=== PATIENT | female | born 1985 | race Native Hawaiian/Other Pacific Islander ===

== ENCOUNTER → 2017-02-17 | Outpatient (CLI) | payer OTHER ==
--- NOTE | 2017-02-17 10:26 | USB ---
Reason for exam: clinical finding. History: Patient is nulliparous. Indicated problem(s): palpable abnormality in the right breast. Physical Findings: Nurse Summary: lump found by physician (nurse avila). US Breast RT Right breast ultrasound includes all four quadrants, the retroareolar region and axilla. Finding demonstrates no cystic or solid lesion seen. These results were verbally communicated with the patient and result sheet given to the patient on 02/17/17. ASSESSMENT: Negative, BI-RAD 1 RECOMMENDATION: Routine screening mammogram of both breasts at age 42. Manage patient on a clinical basis.
== END | disposition home or self-care (01) ==
LOC: RADUSWWP 09:15
PROVIDERS: ATTEND Radiology Diagnostic Radiology
DX: N63 Unspecified lump in breast (principal)

== ENCOUNTER → 2017-02-17 | Outpatient (CLI) | payer OTHER ==
--- NOTE | 2017-02-17 09:56 | US ---
EXAMINATION TYPE: US thyroid st tissue head/neck DATE OF EXAM: 02/17/2017 COMPARISON: NONE CLINICAL HISTORY: ,E04.1 Thyroid nodule. Left palpable GLAND SIZE: Right Lobe: 5.4 x 1.3 x 1.7 cm Overall Parenchyma: heterogenous Left Lobe: 4.8 x 1.6 x 2.0 cm Overall Parenchyma: heterogeneous Isthmus Thickness: 0.4 cm NODULES RIGHT: # of nodules measured on right: 0 LEFT: # of nodules measured on left: 1 1. 0.6 X 0.4 x 0.7 cm echogenic solid nodule at the lower pole with well-defined margins; . This n odule is wider than tall and shows intranodular vascularity. Prior size: no prior ISTHMUS: # of nodules measured in the isthmus: 0 Bilateral neck scanned, no evidence of lymphadenopathy. IMPRESSION: 1. Single less than 1 cm left thyroid nodule noted. 2. Thyroid appears to be enlarged and heterogeneous correlate for thyroiditis.
== END | disposition home or self-care (01) ==
LOC: RADMAMWWP 08:57
PROVIDERS: ATTEND Family Medicine
DX: E04.1 Nontoxic single thyroid nodule (principal)
CPT/HCPCS: 76536

== ENCOUNTER → 2017-03-16 | Outpatient (CLI) | payer OTHER ==
--- NOTE | 2017-03-16 20:35 | XR ---
EXAMINATION TYPE: XR cervical spine comp DATE OF EXAM: 03/16/2017 COMPARISON: NONE HISTORY: 31-year-old female disturbance of skin sensation, neck pain TECHNIQUE: 6 views FINDINGS: No predental space widening or prevertebral soft tissue swelling. There is reversal of the normal cer vical lordosis but with preserved alignment. Normal odontoid view. No significant bony spondylotic ne ural foraminal narrowing on either side. IMPRESSION: 1. Straightening of the normal cervical lordosis could be positional or due to muscle spasm. 2. No malalignment or appreciable bony neuroforaminal narrowing on either side.
== END | disposition home or self-care (01) ==
LOC: RADXRMAIN 17:00
PROVIDERS: ATTEND Nurse Practitioner Women's Health
DX: M40.202 Unspecified kyphosis, cervical region (principal); M54.2 Cervicalgia; R20.9 Unspecified disturbances of skin sensation
CPT/HCPCS: 72050

== ENCOUNTER → 2017-04-13 | Outpatient (CLI) | payer OTHER | END | disposition home or self-care (01) | LOC: LABWHC1 14:54 | PROVIDERS: ATTEND Nurse Practitioner Women's Health | DX: E04.1 Nontoxic single thyroid nodule (principal); E03.9 Hypothyroidism, unspecified | CPT/HCPCS: 36415; 84439; 84443; 86376 ==

== ENCOUNTER → 2017-12-13 | Outpatient (CLI) | payer OTHER ==
--- NOTE | 2017-12-13 19:05 | ECHOF ---
Referral Reason:Z82.49 Family history of ischemic heart disease MEASUREMENTS -------- HEIGHT: 171.4 cm WEIGHT: 131.5 kg BP: 138/65 RVIDd: 2.7 cm (< 3.3) IVSd: 0.9 cm (0.6 - 1.1) LVIDd: 5.1 cm (3.9 - 5.3) LVPWd: 0.8 cm (0.6 - 1.1) IVSs: 1.3 cm LVIDs: 3.4 cm LVPWs: 1.1 cm LA Diam: 3.5 cm (2.7 - 3.8) LAESV Index (A-L): 20.96 ml/m Ao Diam: 2.9 cm (2.0 - 3.7) AV Cusp: 2.1 cm (1.5 - 2.6) MV EXCURSION: 16.594 mm (> 18.000) MV EF SLOPE: 111 mm/s (70 - 150) EPSS: 0.2 cm MV E Ajit: 0.93 m/s MV DecT: 152 ms MV A Ajit: 0.62 m/s MV E/A Ratio: 1.50 FINDINGS -------- Sinus rhythm. This was a technically difficult study with suboptimal apical views. The left ventricular size is normal. Left ventricular wall thickness is normal. Overall left vent ricular systolic function is normal with, an EF between 60 - 65 %. The right ventricle is normal in size and function. Normal LA size by volume 22+/-6 ml/m2. The right atrium is normal in size. 4 ml of Lumason was utilized for enhancement of images. The aortic valve was not well visualized. The mitral valve is normal. The tricuspid valve appears structurally normal. The pulmonic valve was not well visualized. The aortic root size is normal. Normal inferior vena cava with normal inspiratory collapse consistent with estimated right atrial pre ssure of 5 mmHg. There is no pericardial effusion. CONCLUSIONS -------- 1. Sinus rhythm. 2. This was a technically difficult study with suboptimal apical views. 3. The left ventricular size is normal. 4. Left ventricular wall thickness is normal. 5. Overall left ventricular systolic function is normal with, an EF between 60 - 65 %. 6. The right ventricle is normal in size and function. 7. Normal LA size by volume 22+/-6 ml/m2. 8. The right atrium is normal in size. 9. 4 ml of Lumason was utilized for enhancement of images. 10. The aortic valve was not well visualized. 11. The mitral valve is normal. 12. The tricuspid valve appears structurally normal. 13. The pulmonic valve was not well visualized. 14. The aortic root size is normal. 15. Normal inferior vena cava with normal inspiratory collapse consistent with estimated right atrial pressure of 5 mmHg. 16. There is no pericardial effusion. LITHOGRAPHER HELPER: Alena Cheng RDCS
== END | disposition home or self-care (01) ==
LOC: RADECHMAIN 13:02
PROVIDERS: ATTEND Family Medicine
DX: Z13.6 Encounter for screening for cardiovascular disorders (principal); Z82.49 Family history of ischemic heart disease and other diseases of the circulatory system
CPT/HCPCS: C8929; Q9950; 93306

== ENCOUNTER 2019-04-08 17:32 | Emergency (ER) | payer OTHER ==
[2019-04-08 17:37] VITALS: BP 123/86; PULSE 86; RESP 16; TEMP 98.6
[2019-04-08] MEDS ORDERED: CIPROFLOXACIN-DEXAMETH 0.3-0.1% DROPS 7.5 ML BTL LEFT EAR STA (18:24)
[2019-04-08] MEDS ORDERED: NEOMYCIN-POLYMYXIN-HC OPHTH DROPS 7.5 ML BTL LEFT EYE STA (18:41)
--- NOTE | 2019-04-08 19:29 | ED ---
ENT HPI - General Chief complaint: ENT Stated complaint: ear pain Time Seen by Provider: 04/08/19 17:45 Source: patient Mode of arrival: ambulatory Limitations: no limitations - History of Present Illness Initial comments: Patient is a 33-year-old male presenting to emergency Department with a chief complaint of ear pain. Patient reports the pain started approximately 2 days ago and is increased in severity over since. Patient reports ear drainage and pain when testing on the ear. Patient reports using drops that were given to her by her friend. Patient reports currently she has decreased sounds sensation in the right ear. Patient denies any fever or headache.. Patient denies recent exposure to pool water. - Related Data Home Medications Medication Instructions Recorded Confirmed ALPRAZolam [Xanax] 0.5 mg PO BID PRN 04/10/16 04/10/16 Phentermine HCl [Adipex-P] 18.75 mg PO QAM 04/10/16 04/10/16 Previous Rx's Medication Instructions Recorded Ibuprofen [Motrin] 600 mg PO Q8HR PRN #30 tab 11/28/14 SILVER sulfADIAZINE CREAM 1 applic TOPICAL BID PRN #1 tube 04/10/16 [Silvadene Cream] Sulfamethox-Tmp 800-160Mg [Bactrim 1 tab PO Q12HR 7 Days tab 04/10/16 DS 800-160 mg] valACYclovir HCL [Valtrex] 1,000 mg PO Q12HR 10 Days tab 04/10/16 Amoxicillin 500 mg PO Q8H #21 capsule 04/08/19 Allergies Allergy/AdvReac Type Severity Reaction Status Date / Time bee pollen Allergy Unknown Verified 04/08/19 17:37 Review of Systems ROS Statement: Those systems with pertinent positive or pertinent negative responses have been documented in the HPI. ROS Other: All systems not noted in ROS Statement are negative. Past Medical History Past Medical History: No Reported History History of Any Multi-Drug Resistant Organisms: None Reported Past Surgical History: No Surgical Hx Reported Past Psychological History: No Psychological Hx Reported Smoking Status: Current every day smoker Past Alcohol Use History: Rare Past Drug Use History: None Reported General Exam Limitations: no limitations General appearance: alert, in no apparent distress Head exam: Present: atraumatic, normocephalic, normal inspection Eye exam: Present: normal appearance, PERRL, EOMI Pupils: Present: normal accommodation ENT exam: Present: normal exam, normal oropharynx, mucous membranes moist. Absent: TM's normal bilaterally (Mild erythema at the right tympanic membrane), normal external ear exam (Erythema and white discharge from the external ear canal) Neck exam: Present: normal inspection, full ROM Respiratory exam: Present: normal lung sounds bilaterally Cardiovascular Exam: Present: regular rate, normal rhythm GI/Abdominal exam: Present: soft Extremities exam: Present: normal inspection, full ROM, normal capillary refill Back exam: Present: normal inspection, full ROM Neurological exam: Present: alert, oriented X3 Psychiatric exam: Present: normal affect, normal mood Skin exam: Present: warm, intact, normal color Course Vital Signs 04/08/19 17:34 Temperature 98.6 F Pulse Rate 86 Respiratory 16 Rate Blood Pressure 123/86 O2 Sat by Pulse 100 Oximetry Medical Decision Making - Medical Decision Making Patient is a 33-year-old male presenting to the emergency department with a chief complaint of right ear pain. Right ear irrigation was performed to remove any foreign bodies that were placed in the right ear by the patient. Patient tolerated the procedure well. Patient was given antibiotic eardrops advised to continue using for 5-7 days. Patient advised to follow-up with primary care. Strict return parameters were thoroughly discussed the patient was understanding and agreeable. Case discussed with physician. Disposition Clinical Impression: Otitis externa Disposition: HOME SELF-CARE Condition: Stable Instructions (If sedation given, give patient instructions): Earache (ED) Additional Instructions: Please take prescribed medication as directed. Please follow with primary care. Please return to emergency department if symptoms worsen. Prescriptions: Amoxicillin 500 mg PO Q8H #21 capsule Is patient prescribed a controlled substance at d/c from ED?: No Referrals: Wood Gottlieb MD [Primary Care Provider] - 1-2 days Time of Disposition: 19:29
== END 2019-04-08 19:42 | disposition home or self-care (01) ==
LOC: EC 17:32
DX: H60.91 Unspecified otitis externa, right ear (principal); F17.200 Nicotine dependence, unspecified, uncomplicated; Z79.899 Other long term (current) drug therapy; Z91.048 Other nonmedicinal substance allergy status
CPT/HCPCS: 99282

== ENCOUNTER → 2019-10-10 | Outpatient (CLI) | payer OTHER ==
--- NOTE | 2019-10-10 10:46 | XR ---
EXAMINATION TYPE: XR KUB DATE OF EXAM: 10/10/2019 COMPARISON: NONE HISTORY: Pain TECHNIQUE: Single supine KUB image of the abdomen is obtained FINDINGS: Small bowel demonstrates no evidence for dilatation or air fluid levels. Gas and fecal material is seen in non-distended colon. No convincing evidence for pneumoperitoneum. No unusual calcifications. The lung bases are clear. The osseous structures are intact. IMPRESSION: 1. Overall nonobstructive bowel gas pattern.
== END | disposition home or self-care (01) ==
LOC: RADXRMAIN 10:08
PROVIDERS: ATTEND Family Medicine
DX: R10.9 Unspecified abdominal pain (principal); R31.0 Gross hematuria
CPT/HCPCS: 74018

== ENCOUNTER → 2020-05-29 | Outpatient (CLI) | payer OTHER ==
--- NOTE | 2020-05-30 12:32 | US ---
EXAMINATION TYPE: US transvaginal DATE OF EXAM: 05/29/2020 COMPARISON: NONE CLINICAL HISTORY: N94.10 Dyspareunia, N93.9 Abnormal vaginal bleeding. Pain and bleeding TECHNIQUE: Transvaginal (TV). EXAM MEASUREMENTS: Uterus: 8.1 x 4.0 x 5.0 cm Endometrial Stripe: 1.1 cm 1. Uterus: Anteverted Nabothian cysts seen largest 1.4 cm. 2. Endometrium: wnl 3. Right Ovary: Obscured by overlying bowel gas 4. Left Ovary: Obscured by overlying bowel gas 5. Bilateral Adnexa: wnl 6. Posterior cul-de-sac: wnl IMPRESSION: 1. Visualized portion of the pelvis is unremarkable. Ovaries are not identified during this exam
== END | disposition home or self-care (01) ==
LOC: RADUSWWP 16:28
PROVIDERS: ATTEND Family Medicine
DX: N94.10 Unspecified dyspareunia (principal); N93.9 Abnormal uterine and vaginal bleeding, unspecified
CPT/HCPCS: 76830

== ENCOUNTER 2023-07-30 11:35 | Emergency (ER) | payer OTHER ==
--- NOTE | 2023-07-30 11:55 | XR ---
EXAMINATION TYPE: XR chest 2V DATE OF EXAM: 07/30/2023 COMPARISON: NONE HISTORY: Chest pain TECHNIQUE: Frontal and lateral views of the chest are obtained. FINDINGS: There is no focal air space opacity. No evidence for pneumothorax. No pleural effusion. The cardiac silhouette size is within normal limits. The osseous structures are grossly intact. IMPRESSION: 1. No acute cardiopulmonary process.
--- NOTE | 2023-07-30 12:11 | ED ---
URI HPI - General Chief Complaint: Upper Respiratory Infection Stated Complaint: KADEN,ear pain Time Seen by Provider: 07/30/23 12:10 Source: patient Mode of arrival: ambulatory Limitations: no limitations - History of Present Illness Initial Comments: patient is a 38-year-old female presented ER with chief complaint of URI. Patient states the symptoms were gone on for the past 3 days. Patient states congestion, cough, sore throat, bilateral ear pain. She denies any chest pain or shortness of breath. Patient denies any current fevers, chills or nig htsweats. - Related Data Home Medications Medication Instructions Recorded Confirmed ALPRAZolam [Xanax] 0.5 mg PO BID PRN 04/10/16 04/10/16 Phentermine HCl [Adipex-P] 18.75 mg PO QAM 04/10/16 04/10/16 Previous Rx's Medication Instructions Recorded Ibuprofen [Motrin] 600 mg PO Q8HR PRN #30 tab 11/28/14 SILVER sulfADIAZINE CREAM 1 applic TOPICAL BID PRN #1 tube 04/10/16 [Silvadene Cream] Sulfamethox-Tmp 800-160Mg [Bactrim 1 tab PO Q12HR 7 Days tab 04/10/16 DS 800-160 mg] valACYclovir HCL [Valtrex] 1,000 mg PO Q12HR 10 Days tab 04/10/16 Amoxicillin 500 mg PO Q8H #21 capsule 04/08/19 Albuterol Inhaler [Ventolin Hfa 1 - 2 puff INHALATION Q6H PRN #1 07/30/23 Inhaler] each Allergies Allergy/AdvReac Type Severity Reaction Status Date / Time bee pollen Allergy Unknown Verified 07/30/23 11:39 Review of Systems ROS Statement: Those systems with pertinent positive or pertinent negative responses have been documented in the HPI. ROS Other: All systems not noted in ROS Statement are negative. Past Medical History Past Medical History: No Reported History History of Any Multi-Drug Resistant Organisms: None Reported Past Surgical History: No Surgical Hx Reported Past Psychological History: No Psychological Hx Reported Smoking Status: Current every day smoker Past Alcohol Use History: Rare Past Drug Use History: None Reported General Exam - General Exam Comments Initial Comments: Visual Physical Exam Vital signs reviewed General: Well-appearing, nontoxic, no acute distress. Head: Normocephalic, atraumatic Eyes: PERRLA, EOMI ENT: Airway patent Chest: Nonlabored breathing Skin: No visual rash, normal skin tone Neuro: Alert and oriented 3 Musculoskeletal: No gross abnormalities Limitations: no limitations General appearance: alert, in no apparent distress ENT exam: Present: normal exam, mucous membranes moist Neck exam: Present: normal inspection. Absent: tenderness, meningismus, lymphadenopathy Respiratory exam: Present: normal lung sounds bilaterally. Absent: respiratory distress, wheezes, rales, rhonchi, stridor Cardiovascular Exam: Present: regular rate, normal rhythm, normal heart sounds. Absent: systolic murmur, diastolic murmur, rubs, gallop, clicks Neurological exam: Present: alert, oriented X3, CN II-XII intact Psychiatric exam: Present: normal affect, normal mood Course Vital Signs 07/30/23 11:36 Temperature 98.7 F Pulse Rate 86 Respiratory 22 Rate Blood Pressure 113/76 O2 Sat by Pulse 99 Oximetry Medical Decision Making - Medical Decision Making Was pt. sent in by a medical professional or institution (, PA, CERTIFIED [place], urgent care, hospital, or custodial...) When possible be specific @ -No Did you speak to anyone other than the patient for history (EMS, parent, family, police, friend...)? What history was obtained from this source @ -No Did you review nursing and triage notes (agree or disagree)? Why? @ -I reviewed and agree with nursing and triage notes Were old charts reviewed (outside hosp., previous admission, EMS record, old EKG, old radiological studies, urgent care reports/EKG's, custodial records)? Report findings @ -No old charts were reviewed Differential Diagnosis (chest pain, altered mental status, abdominal pain women, abdominal pain men, vaginal bleeding, weakness, fever, dyspnea, syncope, headache, dizziness, GI bleed, back pain, seizure, CVA, palpatations, mental health, musculoskeletal)? @ -COVID-19, RSV, influenza, viral sinusitis EKG interpreted by me (3pts min.). @ -None X-rays interpreted by me (1pt min.). @ -Chest x-ray shows no acute cardiopulmonary process. CT interpreted by me (1pt min.). @ -None done U/S interpreted by me (1pt. min.). @ -None done What testing was considered but not performed or refused? (CT, X-rays, U/S, labs)? Why? @ -None What meds were considered but not given or refused? Why? @ -None Did you discuss the management of the patient with other professionals (professionals i.e. , PA, CERTIFIED [place], lab, RT, psych nurse, web content & social media manager, cellular phone repairer, teacher, protocol officer, lead case manager)? Give summary @ -No Was smoking cessation discussed for >3mins.? @ -No Was critical care preformed (if so, how long)? @ -No Were there social determinants of health that impacted care today? How? (Homelessness, low income, unemployed, alcoholism, drug addiction, transportat ion, low edu. Level, literacy, decrease access to med. care, senior care, rehab)? @ -No Was there de-escalation of care discussed even if they declined (Discuss DNR or withdrawal of care, Hospice)? DNR status @ -No What co-morbidities impacted this encounter? (DM, HTN, Smoking, COPD, CAD, Cancer, CVA, ARF, Chemo, Hep., AIDS, mental health diagnosis, sleep apnea, morbid obesity)? @ -None Was patient admitted / discharged? Hospital course, mention meds given and route, prescriptions, significant lab abnormalities, going to OR and other pertinent info. @ -Discharge. Upon examination, patient's vitals remained stable. Viral swabs in the ER were significant for positive RSV. Patient will be discharged with a prescription for albuterol inhaler. I advised patient to use [id number] Tylenol or Motrin for fever control. Return parameters were discussed. Patient was discharged in stable condition with follow-up to PCP. Patient expressed understanding and agreement with care plan. Undiagnosed new problem with uncertain prognosis? @ -No Drug Therapy requiring intensive monitoring for toxicity (Heparin, Nitro, Insulin, Cardizem)? @ -No Were any procedures done? @ -No Diagnosis/symptom? @ -Respiratory syncytial virus Acute, or Chronic, or Acute on Chronic? @ -Acute Uncomplicated (without systemic symptoms) or Complicated (systemic symptoms)? @ -Uncomplicated Side effects of treatment? @ -No Exacerbation, Progression, or Severe Exacerbation? @ -No Poses a threat to life or bodily function? How? (Chest pain, [place], GA, pneumonia, PE, COPD, DKA, ARF, appy, cholecystitis, CVA, Diverticulitis, Homicidal, Suicidal, threat to staff... and all critical care pts) @ -No - Lab Data Lab Results 07/30/23 Range/Units 11:42 Influenza Type A (PCR) Not Detected (Not Detectd) Influenza Type B (PCR) Not Detected (Not Detectd) RSV (PCR) Detected A (Not Detectd) SARS-CoV-2 (PCR) Not Detected (Not Detectd) - Radiology Data Radiology results: report reviewed, image reviewed Disposition Clinical Impression: RSV (respiratory syncytial virus infection) Disposition: HOME SELF-CARE Condition: Stable Additional Instructions: Please return to the Emergency Department if symptoms worsen or any other concerns. Please use [id number] Tylenol or Motrin for fever control. Prescriptions: Albuterol Inhaler [Ventolin Hfa Inhaler] 1 - 2 puff INHALATION Q6H PRN #1 each PRN Reason: Shortness Of Breath Is patient prescribed a controlled substance at d/c from ED?: No Referrals: Karyn Dimas [Primary Care Provider] - 1-2 days Time of Disposition: 13:48
[2023-07-30 14:58] VITALS: BP 143/77; PULSE 98; RESP 20; TEMP 98.2
== END 2023-07-30 14:37 | disposition home or self-care (01) ==
LOC: EC 11:35
DX: B97.4 Respiratory syncytial virus as the cause of diseases classified elsewhere (principal); F17.200 Nicotine dependence, unspecified, uncomplicated; Z20.822 Contact with and (suspected) exposure to COVID-19; Z91.030 Bee allergy status
CPT/HCPCS: 71046; 87636; 99285

== ENCOUNTER 2024-09-06 07:18 | Observation (INO) | payer OTHER ==
[2024-09-06] MEDS: IV FLUID CONTINUATION 1,000 ML IV ONE ×2 (07:39→08:40)
[2024-09-06] MEDS: LACTATED RINGERS 1,000 ML IV SCH (07:54)
[2024-09-06 07:57] LABS: Glucose,Whole Blood 403 mg/dL (70-110)
[2024-09-06] MEDS: INSULIN ASPART (NovoLOG) 100 UNIT/ML VIAL SQ STA (08:01)
[2024-09-06 08:38] LABS: Glucose,Whole Blood 394 mg/dL (70-110)
[2024-09-06] MEDS ORDERED: ONDANSETRON 4 MG/2 ML VIAL IVP PRN (08:41)
--- NOTE | 2024-09-06 08:47 | P.GSHP ---
History of Present Illness H&P Date: 09/06/24 This is a 39 year old female who was scheduled to have an EGD and Colonoscopy today with me. In the preoperative area, she was noted to have a blood sugar of 400. She states she is not feeling well. After discussion with anesthesia, decision was made to cancel her procedure and admit her to hospital for hyperglycemia. VSS General-NAD CVS-RRR Lungs-NLB Abdomen-soft, NTND 39 year old with Hyperglycemia. -Patient admitted for management of Hyperglycemia. Patients PCP Dr Zelaya consulted for medical management -SSI -CLD, NPO/midnight -IV fluids -Nausea Control -Patient did do her bowel prep and I explained to her if her blood sugar improves and she feels better, I will do her EGD and Colonoscopy prior to discharge Alahji Saravia DO [facility] [phone] Past Medical History Past Medical History: Diabetes Mellitus, GERD/Reflux, Hyperlipidemia, Thyroid Disorder Additional Past Medical History / Comment(s): RSV RASHES PERINEAL AREA History of Any Multi-Drug Resistant Organisms: None Reported Past Surgical History: No Surgical Hx Reported Additional Past Surgical History / Comment(s): WISDOM. Past Anesthesia/Blood Transfusion Reactions: No Reported Reaction Smoking Status: Current every day smoker Medications and Allergies Home Medications Medication Instructions Recorded Confirmed Type Ibuprofen [Motrin] 600 mg PO Q8HR PRN #30 tab 11/28/14 09/06/24 Rx EPINEPHrine (Auto Inject) [Epipen] 1 dose IM DIRECTED PRN 08/31/24 09/06/24 History Levothyroxine Sodium 125 mg PO QAM 08/31/24 09/06/24 History metFORMIN HCL 500 mg PO QAM 08/31/24 09/06/24 History valACYclovir HCL [Valtrex] 1,000 mg PO Q12HR PRN 08/31/24 09/06/24 History Allergies Allergy/AdvReac Type Severity Reaction Status Date / Time bee pollen Allergy Unknown Verified 09/06/24 07:52 Surgical - Exam Vital Signs Temp Pulse Resp BP Pulse Ox 97.4 F L 108 H 20 125/78 97 09/06/24 07:47 09/06/24 07:47 09/06/24 07:47 09/06/24 07:47 09/06/24 07:47 Results - Labs Abnormal Lab Results - Last 24 Hours (Table) 09/06/24 09/06/24 Range/Units 07:55 08:36 POC Glucose (mg/dL) 403 H 394 H (70-110) mg/dL
[2024-09-06] MEDS: SODIUM CHLORIDE 0.9% 1,000 ML IV SCH (08:51)
[2024-09-06 09:54] LABS: Appearance,Urine Clear (Clear); Bilirubin,Urine Negative (Negative); Blood,Urine Trace (Negative); Color,Urine Light Yellow; Glucose,Urine (UA) 4+ (Negative); Ketones,Urine 1+ (Negative); Leukocyte Esterase,Urine Negative (Negative); Mucus,Urine Rare /hpf; Nitrite,Urine Negative (Negative); Protein,Urine Negative (Negative); RBC,Urine <1 /hpf (0-5); Specific Gravity,Urine 1.026 (1.001-1.035); Squamous Epithelial Cell,Urine 2 /hpf (0-4); Urobilinogen,Urine <2.0 mg/dL (<2.0); WBC,Urine 1 /hpf (0-5)
[2024-09-06] MEDS: NICOTINE 14MG/24HR PATCH TRANSDERM SCH (10:32)
[2024-09-06] MEDS ORDERED: IBUPROFEN 600 MG TAB PO PRN (10:51)
[2024-09-06 12:09] LABS: Glucose,Whole Blood 317 mg/dL (70-110)
[2024-09-06] MEDS: INSULIN ASPART (NovoLOG) 100 UNIT/ML VIAL SQ SCH (12:20)
[2024-09-06 17:00] LABS: Glucose,Whole Blood 257 mg/dL (70-110)
[2024-09-06] MEDS: PEG 3350 (236 GM/BTL) + LYTES 4,000 ML BOTTLE PO ONE (17:59)
--- NOTE | 2024-09-06 18:23 | HP ---
HISTORY AND PHYSICAL CHIEF COMPLAINT: Elevated blood sugar. HISTORY OF PRESENT ILLNESS: This 39-year-old white female was admitted for colonoscopy, but the case was canceled when she was found to have a blood sugar of 400. She has been feeling fine. She is a diabetic. REVIEW OF SYSTEMS: She has had no nausea, vomiting, etc. Past medical history, family history, personal and social histories reveal that she is not allergic to any medication. She is on: 1. Protonix. 2. Lexapro. 3. Atorvastatin. 4. Ibuprofen. 5. Levothyroxine. 6. Metformin. 7. Valacyclovir. Remainder of her history is unremarkable. She does smoke. She drinks alcohol occasionally. PHYSICAL EXAMINATION: VITAL SIGNS: Blood pressure 120/80 with a pulse of 101, respirations 16. She is afebrile. GENERAL: She appeared to be slightly overweight and in no acute distress. SKIN: Color is normal. Skin is warm and dry. HEAD, EARS, EYES, NOSE, MOUTH and THROAT: Normal. NECK: Veins are not distended. Thyroid is not enlarged. CHEST: Clear. CARDIAC: Normal. ABDOMEN: Soft and nontender. IMPRESSION: Uncontrolled type 2 diabetes. PLAN: 1. Bedrest. 2. IV fluids. 3. Basal bolus insulin program. MMODL / IJN: [id number] /
[2024-09-06 20:07] LABS: Glucose,Whole Blood 303 mg/dL (70-110)
[2024-09-07 03:30] LABS: Basophils % (A) 1 %; Eosinophils # (A) 0.5 k/uL (0-0.7); Eosinophils % (A) 6 %; HCT 38.5 % (34.0-46.0); HGB 12.2 gm/dL (11.4-16.0); Lymphocytes % (A) 38 %; MCHC 31.8 g/dL (31.0-37.0); MCV 81.9 fL (80.0-100.0); Mean Platelet Volume 8.1; Monocytes # (A) 0.3 k/uL (0-1.0); Monocytes % (A) 4 %; Neutrophils # (A) 3.9 k/uL (1.3-7.7); Neutrophils % (A) 49 %; Platelet Count 320 k/uL (150-450); RDW 15.2 % (11.5-15.5); WBC 7.9 k/uL (3.8-10.6)
[2024-09-07 03:34] LABS: African American GFR (CKD) >90 (>60 ml/min/1.73 sqM); Anion Gap 7 mmol/L; Blood Urea Nitrogen 7 mg/dL (7-17); Calcium 8.6 mg/dL (8.4-10.2); Carbon Dioxide 23 mmol/L (22-30); Chloride 106 mmol/L (98-107); Glucose 217 mg/dL (74-99); Non-African American GFR(CKD) >90 (>60 ml/min/1.73 sqM); Potassium 4.8 mmol/L (3.5-5.1); Sodium 136 mmol/L (137-145)
[2024-09-07] MEDS: LEVOTHYROXINE 125 MCG TAB PO SCH (05:58)
[2024-09-07 06:01] LABS: Glucose,Whole Blood 262 mg/dL (70-110)
[2024-09-07] MEDS: metFORMIN 500 MG TAB PO SCH (08:45)
[2024-09-07] MEDS: INSULIN DETEMIR (LEVEMIR) 100 UNIT/ML SYR SQ SCH ×2 (08:45→21:09)
[2024-09-07 11:27] LABS: Glucose,Whole Blood 231 mg/dL (70-110)
[2024-09-07] MEDS ORDERED: PROPOFOL 10 MG/ML 20 ML VIAL IV ONE (13:32)
[2024-09-07] MEDS ORDERED: LIDOCAINE 2% (PF) 20 MG/ML 5 ML VIAL ONE (13:32)
[2024-09-07] MEDS: SODIUM CHLORIDE 0.9% 1,000 ML IV ONE ×2 (13:35→13:56)
--- NOTE | 2024-09-07 16:03 | P.PN ---
Progress Note - Text Progress Note Date: 09/07/24 EGD and Colonoscopy were performed. The EGD showed some gastritis and biopsies for H. Pylori were performed. The colonoscopy was normal without any evidence of polyps, masses or diverticula. Formal operative note to follow. Alhaji Saravia DO [facility] [phone]
[2024-09-07 16:38] LABS: Glucose,Whole Blood 146 mg/dL (70-110)
[2024-09-07 20:30] LABS: Glucose,Whole Blood 228 mg/dL (70-110)
[2024-09-07 23:17] LABS: Glucose,Whole Blood 149 mg/dL (70-110)
--- NOTE | 2024-09-08 00:33 | PN ---
PROGRESS NOTE DATE OF SERVICE: 09/07/2024 CHIEF COMPLAINT: Uncontrolled diabetes. HISTORY OF PRESENT ILLNESS: This lady's sugars are still high, and her insulin will be increased. She did have her scope today. PHYSICAL EXAMINATION: VITAL SIGNS: Normal. CHEST: Clear. CARDIAC: Normal. ABDOMEN: Soft, nontender. IMPRESSION: Uncontrolled type 2 diabetes mellitus. PLAN: 1. Increase insulin. 2. Probably home tomorrow. MMODL / IJN: [id number] /
[2024-09-08 01:19] LABS: Glucose,Whole Blood 168 mg/dL (70-110)
[2024-09-08 06:14] LABS: Glucose,Whole Blood 231 mg/dL (70-110)
[2024-09-08 08:37] VITALS: BP 115/62; PULSE 69; RESP 17; TEMP 97.6
--- NOTE | 2024-09-08 20:14 | DS ---
DISCHARGE SUMMARY CHIEF COMPLAINT: Abdominal pain. HISTORY OF PRESENT ILLNESS AND PHYSICAL EXAMINATION: Details of this lady's history and physical can be found in the initial workup. COURSE IN THE HOSPITAL: After admission, she was placed on bedrest and she was going for colonoscopy, but her blood sugar was 400 and this was postponed. She was started on insulin management and her blood sugars were coming down. She was taken for the endoscopy where she was found to have colitis, but no other significant pathology. Blood sugars continue to improve and it was felt she could be discharged on the . FINAL DIAGNOSES: 1. Chronic diarrhea. 2. Colitis. 3. Uncontrolled type 2 insulin-dependent diabetes mellitus. OPERATIONS: Colonoscopy. MMODL / IJN: [id number] /
--- NOTE | 2024-09-12 02:01 | P.OP ---
Date of Procedure: 09/07/24 Preoperative Diagnosis: 1. GERD 2. Rectal Bleeding Postoperative Diagnosis: 1. GERD 2. Rectal Bleeding Procedure(s) Performed: 1. EGD with Biopsy 2. Colonoscopy Anesthesia: MAC Surgeon: Alhaji Saravia Pathology: other ([facility]) Condition: stable Disposition: PACU Description of Procedure: Informed consent was obtained. The procedure, its risks, benefits, and alternatives were discussed. The patient was placed in the left lateral decubitus position. The patient was sedated. The endoscope was inserted into the oropharynx and guided under direct vision into the esophagus, stomach, and duodenum. The duodenal bulb and second portion were unremarkable. The scope was withdrawn to the stomach and retroflexed. There was no increased fluid, food or secretions in the upper gastrointestinal tract. There was very minimal, nonspecific, patchy antral erythema and there was evidence of gastritis. There was no ulcer or visible vessel noted. No erosions or ulcers. The scope was withdrawn to the esophagus. There was no esophagitis noted. Next the colonoscopy was performed. Digital rectal exam was performed revealing normal sphincter tone and no external hemorrhoids. The colonoscope was inserted into rectum and advanced under direct visualization, without difficulty, to the cecum, where the cecal strap, appendiceal orifice, and the ileocecal valve were identified. The quality of the preparation was good. The colonoscope was then withdrawn while carefully examining the mucosa. The colonic mucosa appeared normal with normal vascularity and haustral markings. No masses, polyps, AVM/s or diverticula were seen
== END 2024-09-08 11:14 | disposition home or self-care (01) ==
LOC: ORWHC2ENDO 07:18 → 1SOBS 07:19 → 4SSUR 09-07 17:06
PROVIDERS: ADMIT Surgery; ATTEND Surgery
DX: K29.70 Gastritis, unspecified, without bleeding (principal); K21.9 Gastro-esophageal reflux disease without esophagitis; K52.9 Noninfective gastroenteritis and colitis, unspecified; E11.65 Type 2 diabetes mellitus with hyperglycemia; E78.5 Hyperlipidemia, unspecified; E07.9 Disorder of thyroid, unspecified; F17.200 Nicotine dependence, unspecified, uncomplicated; Z79.84 Long term (current) use of oral hypoglycemic drugs; Z79.890 Hormone replacement therapy; Z79.899 Other long term (current) drug therapy
CPT/HCPCS: 88305; 80048; 85025; 81001; 45378; 43239; G0378 ×3; S4990 ×3; J2704; J2003

== ENCOUNTER → 2024-09-14 | Outpatient (CLI) | payer OTHER ==
--- NOTE | 2024-09-16 13:44 | MR ---
EXAMINATION TYPE: MR hip LT wo con DATE OF EXAM: 09/14/2024 10:15 PM COMPARISON: None. CLINICAL INDICATION: Female, 39 years old with history of R62.81 UNSTEADY GAIT R10.2 PELVIC PAIN M70. 62, Left hip pain, Unsteady gait, Trochanteric LT hip IV Contrast: cc (None if empty) Standard multiplanar, multisequence MRI departmental protocol Multiplanar, multisequence images of the pelvis focusing and left hip were acquired without contrast. Diffusion weighted imaging was performed. FINDINGS: No significant narrowing or spurring in either hip joint. Small symmetric joint effusions b ilateral hips favored physiologic. Femoral head shapes are maintained bilaterally. No serpiginous dim inished T1 signal to suggest avascular necrosis. No suspicious increase T2 osseous signal. Some incre ased fluid signal along the greater trochanters bilaterally is seen. No suspicious groin hernia or ad enopathy is seen. Muscle bulk is symmetric and maintained bilaterally. Labrum grossly intact given li mitation of nonarthrogram study. Incidental 11 mm left-sided nabothian cyst in the cervix axial image 23. Additional scattered smaller nabothian cysts are present. 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 [facility], , 09/16/2024 1:42 PM
--- NOTE | 2024-09-16 16:03 | MR ---
EXAMINATION TYPE: MR pelvis wo/w con DATE OF EXAM: 09/14/2024 10:16 PM COMPARISON: Ultrasound and MRI hip CLINICAL INDICATION: Female, 39 years old with history of R62.81 UNSTED GAIT R10.2 PELV PAIN M70.62; PHH, pelvic pain, left hip pain, unsteady gait, trochanteric left hip. TECHNIQUE: Triplane multisequence imaging was performed of the pelvis. IV Contrast: 13 mL Gadobutrol FINDINGS: Reproductive: Vagina: Unremarkable. Uterus: The uterus is anteverted in position. Uterus measures 9.4 x 4.5 x 5.6 cm. Arcuate morphology to the uterine fundus. The endometrium and junctional zone are within normal limits. Intrinsic T1 s ignal 16mm hemorrhagic/ nabothian cyst. Additional regular nabothian cysts identified. Ovaries: Follicular changes are noted to the ovaries. Bladder: Unremarkable. Bowel: Unremarkable as visualized. Peritoneum: No free fluid or adenopathy. Lymph nodes: No evidence of adenopathy. Vasculature: Unremarkable. Musculoskeletal: Bone marrow signal is within normal signal intensity. Mild enhancement on the left g reater trochanter Abdominal wall/soft tissues: Unremarkable. IMPRESSION: 1. No evidence of suspicious pelvic mass. 2. Hemorrhagic/proteinaceous nabothian cyst with other simple appearing nabothian cysts. 3. Mild enhancement on the left greater trochanter suggesting active inflammation. Please see dedicat ed MR left hip for suspected surgical tendinosis of the greater trochanter [facility], , 09/16/2024 4:01 PM
== END | disposition home or self-care (01) ==
LOC: RADMRIMAIN 21:00
PROVIDERS: ATTEND Family Medicine
DX: R26.81 Unsteadiness on feet (principal); M70.62 Trochanteric bursitis, left hip; N88.8 Other specified noninflammatory disorders of cervix uteri
CPT/HCPCS: 72197; 73721; A9585

== ENCOUNTER 2025-03-17 17:12 | Emergency (ER) | payer OTHER ==
--- NOTE | 2025-03-17 17:36 | ED ---
Abdominal Pain HPI - General Chief Complaint: Abdominal Pain Stated Complaint: vomiting,Abd pain Time Seen by Provider: 03/17/25 17:28 Source: patient, RN notes reviewed Mode of arrival: wheelchair Limitations: no limitations - History of Present Illness MD Complaint: abdominal pain Onset/Timin -: days(s) Location: LLQ Radiation: none Migration to: no migration Severity scale (1-10): 10 Quality: aching Consistency: constant Associated Symptoms: nausea, vomiting, fever, constipation Treatments Prior to Arrival: NSAIDs - Related Data Home Medications Medication Instructions Recorded Confirmed EPINEPHrine (Auto Inject) [Epipen] 1 dose IM DIRECTED PRN 08/31/24 09/06/24 Levothyroxine Sodium 125 mg PO QAM 08/31/24 09/06/24 metFORMIN HCL 500 mg PO QAM 08/31/24 09/06/24 valACYclovir HCL [Valtrex] 1,000 mg PO Q12HR PRN 08/31/24 09/06/24 Previous Rx's Medication Instructions Recorded Ibuprofen [Motrin] 600 mg PO Q8HR PRN #30 tab 11/28/14 INSULIN ASPART (NovoLOG) [NovoLOG 8 unit SQ AC-TID #90 each 09/08/24 (formulary)] Insulin Detemir (Levemir) [Levemir] 50 unit SQ HS #30 each 09/08/24 Ciprofloxacin HCl [Cipro] 500 mg PO Q12HR #28 tablet 03/17/25 Allergies Allergy/AdvReac Type Severity Reaction Status Date / Time bee pollen Allergy Unknown Verified 09/06/24 07:52 Review of Systems ROS Statement: Those systems with pertinent positive or pertinent negative responses have been documented in the HPI. ROS Other: All systems not noted in ROS Statement are negative. Past Medical History Past Medical History: Diabetes Mellitus, GERD/Reflux, Hyperlipidemia, Thyroid Disorder Additional Past Medical History / Comment(s): RSV RASHES PERINEAL AREA History of Any Multi-Drug Resistant Organisms: None Reported Past Surgical History: No Surgical Hx Reported Additional Past Surgical History / Comment(s): WISDOM. Past Anesthesia/Blood Transfusion Reactions: No Reported Reaction Past Psychological History: Anxiety Smoking Status: Current every day smoker Past Alcohol Use History: Rare Past Drug Use History: Marijuana General Exam Limitations: no limitations General appearance: alert, in distress Head exam: Present: atraumatic, normocephalic, normal inspection Eye exam: Present: normal appearance, PERRL, EOMI. Absent: scleral icterus, conjunctival injection, periorbital swelling ENT exam: Present: normal exam, mucous membranes dry Neck exam: Present: normal inspection. Absent: tenderness, meningismus, lymphadenopathy Respiratory exam: Present: normal lung sounds bilaterally. Absent: respiratory distress, wheezes, rales, rhonchi, stridor, accessory muscle use Cardiovascular Exam: Present: regular rate, normal rhythm, normal heart sounds. Absent: systolic murmur, diastolic murmur, rubs, gallop, clicks GI/Abdominal exam: Present: soft, tenderness (Positive periumbilical, epigastric, LLQ, LUQ, RUQ TTP without guarding. Positive Schroeder sign. Negative McBurney point, Rovsing sign.), diminished bowel sounds, hypoactive bowel sounds. Absent: distended, guarding, rebound, rigid Extremities exam: Present: normal inspection, full ROM, normal capillary refill. Absent: tenderness, pedal edema, joint swelling, calf tenderness Back exam: Present: CVA tenderness (L). Absent: CVA tenderness (R) Neurological exam: Present: alert, oriented X3, CN II-XII intact Psychiatric exam: Present: normal affect, normal mood Skin exam: Present: warm, dry, intact, normal color. Absent: rash Course Vital Signs 03/17/25 03/17/25 03/17/25 17:14 19:08 20:16 Temperature 101.0 F H 102.4 F H 101.0 F H Pulse Rate 120 H 96 Respiratory 20 20 Rate Blood Pressure 103/64 113/56 O2 Sat by Pulse 100 98 Oximetry 03/17/25 21:14 Temperature 98.9 F Pulse Rate 74 Respiratory 19 Rate Blood Pressure 107/57 O2 Sat by Pulse 98 Oximetry Medical Decision Making - Medical Decision Making Was pt. sent in by a medical professional or institution (, PA, EXPORT SALES ASSISTANT, urgent care, hospital, or [facility]...) When possible be specific @ -[No] Did you speak to anyone other than the patient for history (EMS, parent, family, police, friend...)? What history was obtained from this source @ -[No] Did you review nursing and triage notes (agree or disagree)? Why? @ -[I reviewed and agree with nursing and triage notes] Were old charts reviewed (outside hosp., previous admission, EMS record, old EKG, old radiological studies, urgent care reports/EKG's, [facility] records)? Report findings @ -[No old charts were reviewed] Differential Diagnosis (chest pain, altered mental status, abdominal pain women, abdominal pain men, vaginal bleeding, weakness, fever, dyspnea, syncope, headache, dizziness, GI bleed, back pain, seizure, CVA, palpatations, mental health, musculoskeletal)? @ -Differential Abdominal Pain Women: Appendicitis, Cholecystitis, diverticulosis, ischemic bowel, pancreatitis, hepatitis, UTI, gastroenteritis, AAA, incarcerated hernia, bowel obstruction, constipation, inflammatory bowel, hepatitis, peptic ulcer disease, splenic infarction, perforated viscus, vulvitis, ovarian torsion, PID, kidney stone, placenta abruption, this is not meant to be an all-inclusive list EKG interpreted by me (3pts min.). @ -Not done X-rays interpreted by me (1pt min.). @ -[None done] CT interpreted by me (1pt min.). @ -[None done] U/S interpreted by me (1pt. min.). @ -[None done] What testing was considered but not performed or refused? (CT, X-rays, U/S, labs)? Why? @ -[None] What meds were considered but not given or refused? Why? @ -[None] Did you discuss the management of the patient with other professionals (professionals i.e. , PA, EXPORT SALES ASSISTANT, lab, RT, psych nurse, criminal justice social worker, bar porter, teacher, parachute officer, case mgr)? Give summary @ -[No] Was smoking cessation discussed for >3mins.? @ -[No] Was critical care preformed (if so, how long)? @ -[No] Were there social determinants of health that impacted care today? How? (Homelessness, low income, unemployed, alcoholism, drug addiction, transportation, low edu. Level, literacy, decrease access to med. care, snf, rehab)? @ -[No] Was there de-escalation of care discussed even if they declined (Discuss DNR or withdrawal of care, Hospice)? DNR status @ -[No] What co-morbidities impacted this encounter? (DM, HTN, Smoking, COPD, CAD, Cancer, CVA, ARF, Chemo, Hep., AIDS, mental health diagnosis, sleep apnea, morbid obesity)? @ -[None] Was patient admitted / discharged? Hospital course, mention meds given and route, prescriptions, significant lab abnormalities, going to OR and other pertinent info. @ -[hospital course] Undiagnosed new problem with uncertain prognosis? @ -[No] Drug Therapy requiring intensive monitoring for toxicity (Heparin, Nitro, Insulin, Cardizem)? @ -[No] Were any procedures done? @ -[No] Diagnosis/symptom? @ -[default] Acute, or Chronic, or Acute on Chronic? @ -Acute Uncomplicated (without systemic symptoms) or Complicated (systemic symptoms)? @ -Complicated Side effects of treatment? @ -[No] Exacerbation, Progression, or Severe Exacerbation? @ -[No] Poses a threat to life or bodily function? How? (Chest pain, [place], [place], pneumonia, PE, COPD, DKA, ARF, appy, cholecystitis, CVA, Diverticulitis, Homicidal, Suicidal, threat to staff... and all critical care pts) @ -[No] - Lab Data Result diagrams: 03/17/25 17:40 03/17/25 17:40 Lab Results 03/17/25 03/17/25 03/17/25 Range/Units 17:40 17:40 17:43 WBC 10.43 H (4.50-10.00) 10*3/uL RBC 4.29 (4.10-5.20) 10*6/uL Hgb 10.4 L (12.0-15.0) g/dL Hct 32.7 L (37.2-46.3) % MCV 76.2 L (80.0-97.0) fL MCH 24.2 L (27.0-32.0) pg MCHC 31.8 L (32.0-37.0) g/dL Plt Count 338 (140-440) 10*3/uL MPV 9.6 (9.5-12.2) fL Immature Gran % (Auto) 0.3 % Neutrophils % 83.9 % Lymphocytes % 7.4 % Monocytes % 7.2 % Eosinophils % 0.9 % Basophils % 0.3 % Immature Gran # 0.03 (0.00-0.04) 10*3/uL Neutrophils # 8.76 H (1.80-7.70) 10*3/uL Lymphocytes # 0.77 L (0.90-5.00) 10*3/uL Monocytes # 0.75 (0.20-1.00) 10*3/uL Eosinophils # 0.09 (0.04-0.35) 10*3/uL Basophils # 0.03 (0.00-0.10) 10*3/uL Sodium 135 L (137-145) mmol/L Potassium 3.8 (3.5-5.1) mmol/L Chloride 103 (98-107) mmol/L Carbon Dioxide 21 L (22-30) mmol/L Anion Gap 11 mmol/L BUN 8 (7-17) mg/dL Creatinine 0.90 (0.52-1.04) mg/dL Est GFR (CKD-EPI)AfAm >90 (>60 ml/min/1.73 sqM) Est GFR (CKD-EPI)NonAf 82 (>60 ml/min/1.73 sqM) Glucose 99 (74-99) mg/dL Plasma Lactic Acid Jovanni (0.7-2.0) mmol/L Calcium 8.9 (8.4-10.2) mg/dL Total Bilirubin 0.7 (0.2-1.3) mg/dL AST 19 (14-36) U/L ALT 17 (4-34) U/L Alkaline Phosphatase 127 H (38-126) U/L Total Protein 6.2 L (6.3-8.2) g/dL Albumin 3.6 (3.5-5.0) g/dL Lipase 21 L (23-300) U/L Urine Color Urine Appearance (Clear) Urine pH (5.0-8.0) Ur Specific Elroy (1.001-1.035) Urine Protein (Negative) Urine Glucose (UA) (Negative) Urine Ketones (Negative) Urine Blood (Negative) Urine Nitrite (Negative) Urine Bilirubin (Negative) Urine Urobilinogen (<2.0) mg/dL Ur Leukocyte Esterase (Negative) Urine RBC (0-5) /hpf Urine WBC (0-5) /hpf Urine WBC Clumps (None) /hpf Ur Squamous Epith Cells (0-4) /hpf Urine Bacteria (None) /hpf Urine Mucus (None) /hpf Urine HCG, Qual (Not Detectd) Influenza Type A (PCR) Not Detected (Not Detectd) Influenza Type B (PCR) Not Detected (Not Detectd) RSV (PCR) Not Detected (Not Detectd) SARS-CoV-2 (PCR) Not Detected (Not Detectd) 03/17/25 03/17/25 03/17/25 Range/Units 18:05 18:05 18:05 WBC (4.50-10.00) 10*3/uL RBC (4.10-5.20) 10*6/uL Hgb (12.0-15.0) g/dL Hct (37.2-46.3) % MCV (80.0-97.0) fL MCH (27.0-32.0) pg MCHC (32.0-37.0) g/dL Plt Count (140-440) 10*3/uL MPV (9.5-12.2) fL Immature Gran % (Auto) % Neutrophils % % Lymphocytes % % Monocytes % % Eosinophils % % Basophils % % Immature Gran # (0.00-0.04) 10*3/uL Neutrophils # (1.80-7.70) 10*3/uL Lymphocytes # (0.90-5.00) 10*3/uL Monocytes # (0.20-1.00) 10*3/uL Eosinophils # (0.04-0.35) 10*3/uL Basophils # (0.00-0.10) 10*3/uL Sodium (137-145) mmol/L Potassium (3.5-5.1) mmol/L Chloride (98-107) mmol/L Carbon Dioxide (22-30) mmol/L Anion Gap mmol/L BUN (7-17) mg/dL Creatinine (0.52-1.04) mg/dL Est GFR (CKD-EPI)AfAm (>60 ml/min/1.73 sqM) Est GFR (CKD-EPI)NonAf (>60 ml/min/1.73 sqM) Glucose (74-99) mg/dL Plasma Lactic Acid Jovanni 0.9 (0.7-2.0) mmol/L Calcium (8.4-10.2) mg/dL Total Bilirubin (0.2-1.3) mg/dL AST (14-36) U/L ALT (4-34) U/L Alkaline Phosphatase (38-126) U/L Total Protein (6.3-8.2) g/dL Albumin (3.5-5.0) g/dL Lipase (23-300) U/L Urine Color Colorless Urine Appearance Cloudy H (Clear) Urine pH 5.5 (5.0-8.0) Ur Specific Elroy 1.011 (1.001-1.035) Urine Protein Trace H (Negative) Urine Glucose (UA) Negative (Negative) Urine Ketones Negative (Negative) Urine Blood Trace H (Negative) Urine Nitrite Negative (Negative) Urine Bilirubin Negative (Negative) Urine Urobilinogen <2.0 (<2.0) mg/dL Ur Leukocyte Esterase Large H (Negative) Urine RBC 13 H (0-5) /hpf Urine WBC >182 H (0-5) /hpf Urine WBC Clumps Few H (None) /hpf Ur Squamous Epith Cells 1 (0-4) /hpf Urine Bacteria Many H (None) /hpf Urine Mucus Rare H (None) /hpf Urine HCG, Qual Not Detected (Not Detectd) Influenza Type A (PCR) (Not Detectd) Influenza Type B (PCR) (Not Detectd) RSV (PCR) (Not Detectd) SARS-CoV-2 (PCR) (Not Detectd) Disposition Clinical Impression: Pyelonephritis, UTI (urinary tract infection) Disposition: HOME SELF-CARE Condition: Fair Instructions (If sedation given, give patient instructions): Urinary Tract Infection in Women (ED), Kidney Infection (ED) Additional Instructions: Increase water and cranberry juice intake. Alternate Tylenol/Motrin every 4 hours for fever/pain. Follow-up with urology regarding cyst on right kidney. Return to ER if symptoms do not improve or worsen in the next 24-48 hours. Prescriptions: Ciprofloxacin HCl [Cipro] 500 mg PO Q12HR #28 tablet Is patient prescribed a controlled substance at d/c from ED?: No Referrals: Selwyn Zelaya MD [Primary Care Provider] - 1-2 days Bret Palma MD [STAFF PHYSICIAN] - 1-2 days Time of Disposition: 19:55
[2025-03-17 17:49] LABS: Basophils # (A) 0.03 10*3/uL (0.00-0.10); Basophils % (A) 0.3 %; Eosinophils # (A) 0.09 10*3/uL (0.04-0.35); Eosinophils % (A) 0.9 %; HCT 32.7 % (37.2-46.3); HGB 10.4 g/dL (12.0-15.0); Lymphocytes # (A) 0.77 10*3/uL (0.90-5.00); Lymphocytes % (A) 7.4 %; MCH 24.2 pg (27.0-32.0); MCHC 31.8 g/dL (32.0-37.0); MCV 76.2 fL (80.0-97.0); Monocytes # (A) 0.75 10*3/uL (0.20-1.00); Monocytes % (A) 7.2 %; Neutrophils # (A) 8.76 10*3/uL (1.80-7.70); Neutrophils % (A) 83.9 %; Platelet Count 338 10*3/uL (140-440); RBC 4.29 10*6/uL (4.10-5.20); RDW 17.1 % (11.5-14.5); WBC 10.43 10*3/uL (4.50-10.00)
[2025-03-17] MEDS: cefTRIAXone IN SWFI 1,000 MG/10 ML SYRINGE IVP STA ×2 (18:07→20:18)
[2025-03-17] MEDS: ACETAMINOPHEN TAB 500 MG TAB PO STA (18:10)
[2025-03-17] MEDS: ONDANSETRON 4 MG/2 ML VIAL IVP STA (18:11)
[2025-03-17] MEDS: LACTATED RINGERS 1,000 ML IV ONE (18:12)
[2025-03-17] MEDS: HYDROmorphone 1 MG/ML 1 ML SYRINGE IVP STA (18:12)
[2025-03-17 18:13] LABS: ALT 17 U/L (4-34); AST 19 U/L (14-36); African American GFR (CKD) >90 (>60 ml/min/1.73 sqM); Albumin 3.6 g/dL (3.5-5.0); Alkaline Phosphatase 127 U/L (38-126); Anion Gap 11 mmol/L; Blood Urea Nitrogen 8 mg/dL (7-17); Calcium 8.9 mg/dL (8.4-10.2); Carbon Dioxide 21 mmol/L (22-30); Chloride 103 mmol/L (98-107); Glucose 99 mg/dL (74-99); Lipase 21 U/L (23-300); Non-African American GFR(CKD) 82 (>60 ml/min/1.73 sqM); Potassium 3.8 mmol/L (3.5-5.1); Sodium 135 mmol/L (137-145); Total Protein 6.2 g/dL (6.3-8.2)
[2025-03-17 18:23] LABS: RSV Not Detected (Not Detectd)
[2025-03-17 18:41] LABS: Bacteria,Urine Many /hpf; Bilirubin,Urine Negative (Negative); Blood,Urine Trace (Negative); Color,Urine Colorless; Glucose,Urine (UA) Negative (Negative); Ketones,Urine Negative (Negative); Leukocyte Esterase,Urine Large (Negative); Mucus,Urine Rare /hpf; Nitrite,Urine Negative (Negative); PH, Urine 5.5 (5.0-8.0); Protein,Urine Trace (Negative); RBC,Urine 13 /hpf (0-5); Specific Gravity,Urine 1.011 (1.001-1.035); Squamous Epithelial Cell,Urine 1 /hpf (0-4); Urobilinogen,Urine <2.0 mg/dL (<2.0); WBC,Urine >182 /hpf (0-5)
[2025-03-17] MEDS: IBUPROFEN 800 MG TAB PO STA (19:24)
--- NOTE | 2025-03-17 19:48 | CT ---
EXAMINATION TYPE: CT abdomen pelvis w con DATE OF EXAM: 03/17/2025 7:05 PM COMPARISON: MRI CLINICAL INDICATION: Female, 39 years old with history of LLQ pain, Schroeder sign, history of diverticu litis; LLQ PAIN TECHNIQUE: Axial CT abdomen pelvis w con;Sagittal and coronal reformats were created on a separate w orkstation. Contrast used:100 ml mL of Isovue 300 with IV Contrast, (none if empty) Oral contrast used: without Oral Contrast (none if empty) CT DLP: 2092.8 mGycm, Automated exposure control for dose reduction was used. FINDINGS: LOWER CHEST: Unremarkable ABDOMEN LIVER: Unremarkable GALLBLADDER AND BILE DUCTS: Unremarkable. PANCREAS: Unremarkable. SPLEEN: Unremarkable. ADRENAL GLANDS: Unremarkable. KIDNEYS AND URETERS: No evidence of hydronephrosis or obstructing renal calculus. The ureters are unr emarkable. Multiloculated renal cystic lesion off the medial superior kidney measuring 40 x 36 mm. Nonobstructing left renal 2 mm calculus. There is mild left hydronephrosis with very Right fat stranding changes. PELVIS BLADDER: No evidence for wall thickening or mass given limitations of exam. REPRODUCTIVE: Unremarkable. ABDOMEN & PELVIS STOMACH AND BOWEL: No evidence of bowel obstruction. The appendix is normal. PERITONEUM/RETROPERITONEUM: No evidence of pneumoperitoneum or free fluid. VASCULATURE: No evidence of aortic aneurysm. MUSCULOSKELETAL: No acute osseous abnormalities LYMPH NODES: No gross evidence for lymphadenopathy. SOFT TISSUE/ABDOMINAL WALL: Unremarkable IMPRESSION: 1. Fat stranding changes around the left kidney with mild dilation. There is nonobstructing 2 mm dayo culus present. Correlate for recently passed renal calculus. Correlate with urinalysis to exclude sup erimposed ascending infection. 2. Right Multiloculated renal cystic lesion off the medial superior kidney measuring 40 x 36 mm. Pos sibly representing Multilocular cystic nephroma given patient's age. Consider MRI renal mass protocol for complete evaluation. 3. The colon is well visualized No evidence for diverticulitis. [facility], , 03/17/2025 7:45 PM
[2025-03-17] MEDS: CEPHALEXIN 500 MG CAP PO STA (20:17)
[2025-03-17] MEDS: SODIUM CHLORIDE 0.9% 1,000 ML IV STA ×2 (20:21→21:44)
[2025-03-17 21:16] VITALS: TEMP 98.9
[2025-03-17] MEDS: CIPROFLOXACIN HCL 500 MG TAB PO STA (21:45)
[2025-03-17 23:47] VITALS: BP 92/51; PULSE 68; RESP 16
== END 2025-03-17 23:50 | disposition home or self-care (01) ==
LOC: EC 17:12
DX: N12 Tubulo-interstitial nephritis, not specified as acute or chronic (principal); F17.200 Nicotine dependence, unspecified, uncomplicated; Z91.030 Bee allergy status
CPT/HCPCS: 36415; 80053; 83605; 83690; 85025; 81001; 81025; 87040; 87086; 87636; 74177; 99284; 96374; 96375 ×2; 96376; 96361; J2405; J0696; J1171; Q9967